=== PATIENT | male | born 1975 | race Caucasian/White ===

== ENCOUNTER 2016-11-02 07:24 | Emergency (ER) | payer OTHER ==
[2016-11-02 07:41] VITALS: BP 116/88
--- NOTE | 2016-11-02 07:57 | UC ---
Skin Complaint HPI - HPI Summary HPI Summary: SORE ON RIGHT UPPER EYELID X 3 DAYS + PAINFUL SWOLLEN , RED HX HSV / COLD SORES ON HIS LIPS AND EYELIDS - History of Current Complaint Chief Complaint: UCEye Time Seen by Provider: 11/02/16 07:51 Stated Complaint: RIGHT EYE COMPLAINT Hx Obtained From: Patient Onset/Duration: Gradual Onset, Lasting Days - 3, Still Present Timing: Constant Onset Severity: Moderate Current Severity: Moderate Location: Discrete - RIGHT UPPER EYELID Character: Swelling, Pain, Redness, Painful Aggravating Factor(s): Nothing Alleviating Factor(s): Nothing Associated Signs & Symptoms: Positive: Negative - Allergy/Home Medications Allergies/Adverse Reactions: Allergies Allergy/AdvReac Type Severity Reaction Status Date / Time No Known Allergies Allergy Verified 11/02/16 07:37 Home Medications: Home Medications Ibuprofen [Advil] 400 mg PO ONCE PRN 11/02/16 [History Confirmed 11/02/16] Review of Systems Constitutional: Negative Eyes: Negative ENT: Negative Respiratory: Negative Is Patient Immunocompromised?: No All Other Systems Reviewed And Are Negative: Yes PMH/Surg Hx/FS Hx/Imm Hx Previously Healthy: Yes - Surgical History Surgical History: Yes Surgery Procedure, Year, and Place: R knee - Family History Known Family History: Positive: Hypertension - Social History Alcohol Use: Weekly Substance Use Type: None Smoking Status (MU): Former Smoker When Did the Patient Quit Smoking/Using Tobacco: 1996 Physical Exam Triage Information Reviewed: Yes Appearance: Well-Appearing, No Pain Distress, Well-Nourished Vital Signs: Initial Vital Signs Temp 97.7 F 11/02/16 07:37 Pulse 65 11/02/16 07:37 Resp 14 11/02/16 07:37 BP 116/88 11/02/16 07:37 Pulse Ox 100 11/02/16 07:37 Vital Signs Reviewed: Yes Eyes: Positive: Conjunctiva Clear ENT: Positive: Normal ENT inspection, Hearing grossly normal, Pharynx normal Neck: Positive: Supple, Nontender, No Lymphadenopathy Respiratory: Positive: Chest non-tender, Lungs clear, Normal breath sounds Cardiovascular: Positive: RRR, No Murmur, Pulses Normal Abdomen Description: Positive: Nontender, No Organomegaly, Soft Skin: Positive: rashes - VISICULAR RASH RIGHT UPPER EYELID, + ERYTHEMA , TENDER Course/Dx - Diagnoses Provider Diagnoses: HSV INFECTION RIGHT UPPER EYELID Discharge - Discharge Plan Condition: Stable Disposition: HOME Prescriptions: ValACYclovir (*) [Valtrex 500 mg (*)] 500 mg PO BID #14 tab Patient Education Materials: Oral Herpes Simplex Virus Infections (ED) Referrals: Jeff Minaya DO [Primary Care Provider] - If Needed Additional Instructions: HSV VIRUS RIGHT UPPER EYELID
== END 2016-11-02 08:12 | disposition home or self-care (01) ==
LOC: UCCORT 07:24
DX: B00.59 Other herpesviral disease of eye (principal); Z87.891 Personal history of nicotine dependence
CPT/HCPCS: 99212; G0463